=== PATIENT | female | born 1970 | race African-American/Black ===

== ENCOUNTER 2025-08-03 20:39 | Emergency (ER) | payer MEDICARE, OTHER ==
[~2025-08-03] VITALS: Ht 152.4 cm; Wt 119.5 kg
[~2025-08-03 20:39] MED LIST: ALBU8HFA4 PO; AMLO-258 PO; ASPI-482 PO; CIPR-278 PO; DIAZ5TAB PO; FLUT1DIS3 PO; HYDR-4072 PO; HYDR25TA PO; HYDR2TAB37 PO; IBUP-2343 PO; LANS30TA15 PO; LEVAHFA PO; LISI-1024 PO; LORA2TAB18 PO; OXYC5 PO; PRAV20TA PO; PROM12.513 PO
[2025-08-03 20:55] VITALS: BP 145/97; PULSE 80; RESP 16; TEMP 97.9; O2SAT 100
[2025-08-03] MEDS: HYDROCODONE/ACETAMINOPHEN 10-325 MG TABLET PO ONE (23:05)
[2025-08-03] MEDS: KETOROLAC TROMETHAMINE 30 MG/ML VIAL IM ONE (23:05)
[2025-08-03] MEDS: LIDOCAINE 5% TRANSDERMAL PATCH TD ONE (23:05)
[2025-08-04] MEDS ORDERED: LIDO-57 TP (00:42)
== END 2025-08-04 00:25 | disposition home or self-care (01) ==
LOC: EMS 20:39
DX: S80.01XA Contusion of right knee, initial encounter (principal); I10 Essential (primary) hypertension; J44.89 Other specified chronic obstructive pulmonary disease; M16.0 Bilateral primary osteoarthritis of hip; M17.0 Bilateral primary osteoarthritis of knee; Z79.51 Long term (current) use of inhaled steroids; Z79.82 Long term (current) use of aspirin; Z79.891 Long term (current) use of opiate analgesic; Z79.899 Other long term (current) drug therapy; Z88.0 Allergy status to penicillin; Z88.2 Allergy status to sulfonamides; Z88.5 Allergy status to narcotic agent; Z98.890 Other specified postprocedural states; W01.0XXA Fall on same level from slipping, tripping and stumbling without subsequent striking against object, initial encounter; Y93.01 Activity, walking, marching and hiking; Y92.89 Other specified places as the place of occurrence of the external cause; Y99.8 Other external cause status
CPT/HCPCS: 99284; 73564; 73590; 96372; J1885